=== PATIENT | male | born 1975 | race Caucasian/White ===

== ENCOUNTER 2018-01-30 09:59 | Emergency (ER) | payer BC ==
[2018-01-30 11:04] VITALS: BP 127/81
--- NOTE | 2018-01-30 11:18 | UC ---
Respiratory Complaint HPI - HPI Summary HPI Summary: Patient urgent care today with 2 weeks of worsening sinus pain and congestion. Is now having bloody noses and pain in the front of his face. Has had fevers almost every evening as high as 101. Is no longer getting relief with over-the- counter medications - History of Current Complaint Chief Complaint: UCRespiratory Stated Complaint: COLD SYMPTOMS Time Seen by Provider: 01/30/18 11:20 Hx Obtained From: Patient Onset/Duration: Gradual Onset, Lasting Weeks - 2, Still Present Timing: Constant Severity Initially: Moderate Severity Currently: Moderate Character: Cough: Nonproductive Aggravating Factors: Nothing Alleviating Factors: Nothing Associated Signs And Symptoms: Positive: Fever, URI, Nasal Congestion, Sinus Discomfort - Allergies/Home Medications Allergies/Adverse Reactions: Allergies Allergy/AdvReac Type Severity Reaction Status Date / Time No Known Allergies Allergy Verified 01/30/18 11:05 Home Medications: Home Medications Dm/Acetaminophen/Doxylamine [Vicks Nyquil Cold-Flu Liquid] 1 liq PO QPM PRN [History Confirmed 01/30/18] Dm/PE/Acetaminophen/Doxylamine [[place] Plus Allerg-Cough] 2 cap PO ONCE PRN 01/30/18 [History Confirmed 01/30/18] Guaifenesin/Dextromethorphan [Mucinex Dm ER 600-30 mg Tablet] 2 each PO SEE INSTRUCTIONS PRN 01/30/18 [History Confirmed 01/30/18] PMH/Surg Hx/FS Hx/Imm Hx Previously Healthy: Yes - Surgical History Surgical History: None - Family History Known Family History: Positive: None - Social History Occupation: Employed Full-time Lives: With Family Alcohol Use: Occasionally Substance Use Type: None Smoking Status (MU): Never Smoked Tobacco Have You Smoked in the Last Year: No Review of Systems Constitutional: Fever, Chills, Fatigue Skin: Negative Eyes: Negative ENT: Epistaxis, Sore Throat, Ear Ache, Nasal Discharge, Sinus Congestion, Sinus Pain/Tenderness Respiratory: Cough Cardiovascular: Negative Gastrointestinal: Negative Genitourinary: Negative Motor: Negative Neurovascular: Negative Musculoskeletal: Negative Neurological: Negative Psychological: Negative Is Patient Immunocompromised?: No All Other Systems Reviewed And Are Negative: Yes Physical Exam Triage Information Reviewed: Yes Appearance: Well-Nourished, Ill-Appearing - mild, Pain Distress - mild Vital Signs: Initial Vital Signs Temp 98.8 F 01/30/18 10:55 Pulse 100 01/30/18 10:55 Resp 18 01/30/18 10:55 BP 127/81 01/30/18 10:55 Pulse Ox 99 01/30/18 10:55 Vital Signs Reviewed: Yes Eye Exam: Normal Eyes: Positive: Conjunctiva Clear ENT Exam: Normal ENT: Positive: Normal ENT inspection, Hearing grossly normal, Pharynx normal, Nasal congestion, Nasal drainage, TMs normal, Sinus tenderness, Uvula midline. Negative: Tonsillar swelling, Tonsillar exudate, Trismus, Muffled voice, Hoarse voice, Dental tenderness Dental Exam: Normal Neck exam: Normal Neck: Positive: Supple, Nontender, No Lymphadenopathy Respiratory Exam: Normal Respiratory: Positive: Chest non-tender, Lungs clear, Normal breath sounds, No respiratory distress, No accessory muscle use Cardiovascular Exam: Normal Cardiovascular: Positive: RRR, No Murmur, Pulses Normal, Brisk Capillary Refill Musculoskeletal Exam: Normal Musculoskeletal: Positive: Strength Intact, ROM Intact, No Edema Neurological Exam: Normal Neurological: Positive: Alert, Muscle Tone Normal Psychological Exam: Normal Skin Exam: Normal UC Diagnostic Evaluation - Laboratory O2 Sat by Pulse Oximetry: 99 Respiratory Course/Dx - Course Course Of Treatment: Augmentin, Flonase, Mucinex D, Tylenol/ ibuprofen, increase fluids follow with PCP when necessary - Differential Dx/Diagnosis Provider Diagnoses: Acute rhinosinusitis Discharge - Sign-Out/Discharge Documenting (check all that apply): Discharge/Admit/Transfer - Discharge Plan Condition: Stable Disposition: HOME Prescriptions: Amoxicillin/Clavulanate TAB* [Augmentin TAB 875*] 875 mg PO BID #20 tab Fluticasone NASAL SPRAY 50MCG* [Flonase NASAL SPRAY 50MCG*] 2 spray BOTH NARES DAILY #1 btl Patient Education Materials: Sinusitis (ED), How to Use Nasal [place] (ED) Referrals: [facility] [facility] [Outside] - If Needed - Billing Disposition and Condition Condition: STABLE Disposition: HOME
== END 2018-01-30 11:51 | disposition home or self-care (01) ==
LOC: UCCORT 09:59
DX: J01.90 Acute sinusitis, unspecified (principal)
CPT/HCPCS: 99202; G0463